=== PATIENT | female | born 2000 | race Hispanic/Latino ===

== ENCOUNTER 2024-06-06 18:06 | Emergency (ER) | payer OTHER, SELFPAY ==
[2024-06-06 18:43] LABS: Bilirubin Negative (Negative); Blood, Urine Negative (Negative); Clarity Clear (Clear); Glucose, Urine (Dipstick) Negative (Negative); Ketone, Urine Negative (Negative); Leukocyte Negative (Negative); Nitrite Negative (Negative); Protein, Urine (Dipstick) Negative (Neg-Trace); Urobilinogen 0.2 mg/dL (Less than 2); pH, Urine 5.5 (5.0-9.0)
[2024-06-06 18:46] LABS: Specific Gravity, Urine 1.028 (1.002-1.036)
[2024-06-06 18:48] LABS: Pregnancy Test - Urine (BHCG) Negative (Negative); Pregu Control Background? CLEAR/WHITE (CLR/WHITE); Pregu Control Bar Appear? YES (CONTROL BAR); Specific Gravity 1.028 (1.002-1.036)
[2024-06-06 18:52] LABS: Bacteria/HPF 1+ HPF (None Seen); CAUTI Indications for Culture Dysuria,urgency,freq; RBC/HPF None Seen HPF (0-3); WBC/HPF None Seen HPF (0-3)
[2024-06-06 18:53] LABS: Urine Culture Reflex No No
== END 2024-06-06 20:06 | disposition home or self-care (01) ==
LOC: BURERS 18:06
DX: S30.0XXA Contusion of lower back and pelvis, initial encounter (principal); K59.00 Constipation, unspecified; X50.1XXA Overexertion from prolonged static or awkward postures, initial encounter
CPT/HCPCS: 72220; 81001; 81025

== ENCOUNTER 2024-06-22 22:19 | Emergency (ER) | payer OTHER ==
[2024-06-22 23:14] LABS: SARS-CoV-2 E Target Positive; SARS-CoV-2 N2 Target Positive; SARS-CoV-2 NAA Rapid Test DETECTED (NotDetected); SARS-CoV-2 RdRP gene Positive
== END 2024-06-22 23:27 | disposition home or self-care (01) ==
LOC: BURERS 22:19
DX: J20.9 Acute bronchitis, unspecified (principal)
CPT/HCPCS: 71045; U0002

== ENCOUNTER 2025-09-18 21:48 | Emergency (ER) | payer OTHER | END 2025-09-18 23:51 | disposition home or self-care (01) | LOC: BURERS 21:48 | DX: J10.1 Influenza due to other identified influenza virus with other respiratory manifestations (principal) | CPT/HCPCS: 87428; 99283 ==